=== PATIENT | male | born 1990 | race Caucasian/White ===

== ENCOUNTER → 2018-08-11 | Outpatient (CLI) | payer SELFPAY ==
[2018-08-11 10:26] LABS: HEMATOCRIT 46.4 % (42.0-52.0); MEAN CELL VOLUME 90 fl (78-100); MEAN CORPUSCULAR HEMOGLOBIN 31 pg (27-31); MEAN CORPUSCULAR HGB CONC 35 g/dL (33-37); MEAN PLATELET VOLUME 9.6 fl (7.4-10.4); PLATELET COUNT 289 K/mm3 (130-400); RED BLOOD COUNT 5.15 M/mm3 (4.20-5.60); RED CELL DISTRIBUTION WIDTH 12.6 % (11.5-14.5); WHITE BLOOD COUNT 6.9 K/mm3 (4.8-10.8)
[2018-08-11 10:41] LABS: ALBUMIN 5.2 g/dL (3.5-5.0); CALCIUM 9.8 mg/dL (8.4-10.2); POTASSIUM 4.4 mmol/L (3.6-5.0); TOTAL BILIRUBIN 0.8 mg/dL (0.2-1.3); TOTAL PROTEIN 8.6 g/dL (6.3-8.2)
[2018-08-11 11:04] LABS: LYMPHOCYTE 34 % (20-51); MONOCYTE 6 % (3-10); NEUTROPHILS 53 % (42-75)
== END ==
LOC: LAB 10:04
PROVIDERS: Family Medicine
DX: E66.9 Obesity, unspecified (principal)